=== PATIENT | male | born 1995 | race Caucasian/White ===

== ENCOUNTER 2021-04-21 00:49 | Emergency (ER) | payer MEDICAID ==
[~2021-04-21] VITALS: Ht 177.8 cm; Wt 80.0 kg
[2021-04-21 03:20] VITALS: BP 111/76
== END 2021-04-21 05:34 | disposition home or self-care (01) ==
LOC: ER 00:49
DX: R56.9 Unspecified convulsions (principal)
CPT/HCPCS: 82962; 93005; 99283